=== PATIENT | male | born 1995 | race Two or more races ===

== ENCOUNTER 2017-08-29 21:16 | Emergency (ER) | payer SELFPAY ==
[~2017-08-29] VITALS: Ht 188 cm; Wt 100.0 kg
[2017-08-29 21:19] VITALS: BP 137/76; PULSE 62; RESP 15; TEMP 98.4; O2SAT 98
--- NOTE | 2017-08-29 22:32 | PD ---
HPI Chief Complaint: Musculoskeletal Complaint Time Seen by Provider: 22:25 Travel History International Travel<30 days: No Contact w/Intl Traveler<30days: No Traveled to known affect area: No History of Present Illness HPI Patient comes in complaining of right quadricep muscle pain that began shortly prior to arrival. Patient states he was playing soccer he went to pass ball and felt something pop in his right quad. Patient states pain is burning like in nature over anterior aspect and is worse with flexion of the right knee. Patient is able to fully extend the right knee and ambulate though causes pain to be worse. Denies any radiation of the pain. Patient applied ice prior to coming to the emergency department. [facility] Past Medical History Medical History: Denies Significant Hx Social History Tobacco Use: Yes Allergies-Medications (Allergen,Severity, Reaction): Coded Allergies: No Known Allergies (Unverified , 08/29/17) Review of Systems Except as stated in HPI: all other systems reviewed are Neg Physical Exam Narrative GENERAL: Well-developed, well nourished, in no acute distress, and non-ill appearing. SKIN: Focused skin assessment warm and dry. HEAD: Atraumatic. Normocephalic. EYES: Pupils equal and round. EOMI. No scleral icterus. No injection or drainage. ENT: No nasal bleeding or discharge. Mucous membranes pink and moist. NECK: Trachea midline. Supple. No nuclear rigidity. RESPIRATORY: No accessory muscle use. No respiratory distress. MUSCULOSKELETAL: No obvious deformities. No clubbing. No cyanosis. No edema. Full range of motion. Knee: Negative patellar apprehension, varus and valgus maneuvers, anterior draw test, and Lisa test. Pulses equal BL distal to injury. Capillary refill less than 2 seconds distal to injury and equal BL. FROM distal to injury and equal BL. Strength distal to injury equal BL. NV intact distal to injury. Dorsal pulses equal BL. Sensation equal BL 1st web space. Patient reports to palpation over anterior aspect of right quadrant. NEUROLOGICAL: Awake and alert. No obvious cranial nerve deficits. Motor grossly within normal limits. Normal speech. PSYCHIATRIC: Appropriate mood and affect; insight and judgment normal. Data Data Last Documented VS Vital Signs Date Time Temp Pulse Resp B/P (MAP) Pulse Ox O2 Delivery O2 Flow Rate FiO2 08/29/17 22:41 08/29/17 21:19 98.4 62 15 98 Room Air Orders Orders Splint Or Brace Apply/Monitor (08/29/17 22:25) Ed Discharge Order (08/29/17 22:32) MDM Medical Decision Making Medical Screen Exam Complete: Yes Emergency Medical Condition: Yes Differential Diagnosis Fracture, strain, contusion, tendon rupture other Narrative Course There is no clinical evidence for fracture. There is no clinical evidence to suspect bony injury by exam. No obvious ligamental injury or internal derangement is noted at this time. The distal extremity appears neurovascularly intact, without evidence of neurovascular injury nor compartment syndrome. Tendon exam also was intact. The effected limb was splinted. The patient was discharged with sprain and splint care instructions and given warnings for vascular compromise. The patient is to follow up with primary care provider or Orthopedics. The patient agrees with plan. Patient in no obvious distress upon re-evaluation. Any questions/concerns in reference to patient diagnosis/condition discussed and clarified prior to patient's discharge. Reinforced sheer importance of close follow up with patient 's primary physician or primary care clinic and/or orthopedics. Instructed patient to return to ED immediately, if symptoms return/worsen. Patient showed understanding of above instructions. Further instructions and recommendations were detailed in discharge paperwork. Patient ambulated without difficulty out of ED at discharge with crutches. Diagnosis Primary Impression: Strain of right quadriceps muscle Qualified Codes: S76.111A - Strain of right quadriceps muscle, fascia and tendon, initial encounter Referrals: Luis Carlos Young MD Patient Instructions: Crutch Instructions (ED), General Instructions, Muscle Strain (ED) Additional Instructions: Follow-up with your primary care physician and/or orthopedics in 2-5 days for evaluation. Wear Heath wrap as needed for comfort. Use crutches as needed for additional support. Use [id number] Tylenol and/or ibuprofen as needed for pain. Follow instructions on the packaging. Apply ice to affected area 20 minutes per hour as needed for pain. Return to the emergency department if symptoms get worse. Disposition: 01 DISCHARGE HOME Condition: Stable Matthew Tan Aug 29, 2017 22:32
== END 2017-08-29 22:51 | disposition home or self-care (01) ==
LOC: NEPK 21:16
DX: S76.111A Strain of right quadriceps muscle, fascia and tendon, initial encounter (principal); Y93.66 Activity, soccer
CPT/HCPCS: 99282; E0113